=== PATIENT | female | born 1945 | race Caucasian/White ===

== ENCOUNTER → 2016-08-25 | Outpatient (CLI) | payer BC ==
[~2016-08-25] MED LIST: ASPIRIN 32325 MG/TAB PO; ATENOLOL25 MG PO; ATOXIMETIN-B1 CAP PO; LIPITOR20 MG PO; LORTAB 5/500 501 TAB PO; ZOFRAN4 M1 PO
== END ==
LOC: COL.RAD 09:47
DX: M25.551 Pain in right hip (principal)
CPT/HCPCS: J3301; Q9967

== ENCOUNTER → 2019-12-14 | Outpatient (CLI) | payer MEDICARE, BC | LOC: MC.RAD 11:55 | DX: Z12.31 Encounter for screening mammogram for malignant neoplasm of breast (principal) ==

== ENCOUNTER → 2020-12-24 | Outpatient (CLI) | payer MEDICARE, BC | LOC: MC.RAD 12:51 | DX: Z12.31 Encounter for screening mammogram for malignant neoplasm of breast (principal) ==

== ENCOUNTER → 2022-09-02 | Outpatient (CLI) | payer MEDICARE, BC | LOC: COL.RAD 12:05 | DX: K57.30 Diverticulosis of large intestine without perforation or abscess without bleeding (principal); M70.61 Trochanteric bursitis, right hip ==

== ENCOUNTER → 2023-04-25 | Outpatient (CLI) | payer MEDICARE, BC | LOC: COL.RAD 04-21 10:30 | DX: M48.061 Spinal stenosis, lumbar region without neurogenic claudication (principal); M47.816 Spondylosis without myelopathy or radiculopathy, lumbar region; M47.817 Spondylosis without myelopathy or radiculopathy, lumbosacral region; M41.80 Other forms of scoliosis, site unspecified; M43.16 Spondylolisthesis, lumbar region ==

== ENCOUNTER → 2023-12-22 | Outpatient (CLI) | payer MEDICARE, BC | LOC: MHCPAIN 12:51 | DX: M41.86 Other forms of scoliosis, lumbar region (principal); M51.36 Other intervertebral disc degeneration, lumbar region; M48.061 Spinal stenosis, lumbar region without neurogenic claudication; R10.9 Unspecified abdominal pain | CPT/HCPCS: G0463 ==

== ENCOUNTER → 2024-02-16 | Outpatient (CLI) | payer MEDICARE, BC | LOC: MHCPAIN 13:57 | DX: M48.061 Spinal stenosis, lumbar region without neurogenic claudication (principal); M41.86 Other forms of scoliosis, lumbar region; M51.36 Other intervertebral disc degeneration, lumbar region | CPT/HCPCS: G0463 ==

== ENCOUNTER 2024-03-27 12:45 | Outpatient (RCR) | payer MEDICARE, BC | END 2024-04-02 | disposition home or self-care (01) | LOC: MKS.ESL.PT | DX: M41.80 Other forms of scoliosis, site unspecified (principal) ==

== ENCOUNTER 2024-05-02 10:00 | Outpatient (RCR) | payer MEDICARE, BC | END 2024-05-03 | disposition home or self-care (01) | LOC: MKS.ESL.PT | DX: M41.80 Other forms of scoliosis, site unspecified (principal) ==